=== PATIENT | male | born 1980 | race Caucasian/White ===

== ENCOUNTER 2019-12-11 11:03 | Emergency (ER) | payer OTHER ==
[~2019-12-11] VITALS: Ht 162.6 cm; Wt 79.5 kg
[2019-12-11] MEDS ORDERED: ALBU8HFA IH (11:11)
[2019-12-11] MEDS ORDERED: PredniSONE 20 MG TABLET PO ONE (12:00)
[2019-12-11] MEDS ORDERED: ALBUTEROL SULFATE 2.5 MG/0.5 ML NEB SOLUTION NEB ONE (12:00)
[2019-12-11] MEDS ORDERED: IPRATROPIUM BROMIDE 0.5 MG/2.5 ML NEB SOLUTION NEB ONE (12:00)
[2019-12-11 12:32] LABS: INFLUENZA TYPE A NEGATIVE FOR TYPE A (NEGATIVE); INFLUENZA TYPE B NEGATIVE FOR TYPE B (NEGATIVE)
[2019-12-11 13:44] VITALS: BP 142/86
== END 2019-12-11 13:59 | disposition home or self-care (01) ==
LOC: EMS 11:04
DX: J45.909 Unspecified asthma, uncomplicated (principal); R03.0 Elevated blood-pressure reading, without diagnosis of hypertension; Z79.899 Other long term (current) drug therapy
CPT/HCPCS: 87804; 94640; 99283; J7512; 94060

== ENCOUNTER 2021-07-06 11:05 | Emergency (ER) | payer OTHER ==
[~2021-07-06] VITALS: Ht 162.6 cm; Wt 84.1 kg
[~2021-07-06 11:05] MED LIST: ALBU8HFA IH
[2021-07-06 11:09] VITALS: BP 151/114
== END 2021-07-06 16:17 | disposition left against medical advice (07) ==
LOC: EMS 11:12
DX: I10 Essential (primary) hypertension (principal); Z53.21 Procedure and treatment not carried out due to patient leaving prior to being seen by health care provider